=== PATIENT | female | born 1960 | race Caucasian/White ===

== ENCOUNTER 2020-02-29 07:14 | Outpatient (REF) | payer BC, SELFPAY | END 2020-02-29 07:15 | disposition home or self-care (01) | LOC: HO.WFDLDS 07:14 | PROVIDERS: Visit Provider Internal Medicine | DX: Z20.828 Contact with and (suspected) exposure to other viral communicable diseases (principal) | CPT/HCPCS: C9803; U0003 ==

== ENCOUNTER 2020-03-30 07:12 | Outpatient (REF) | payer BC, SELFPAY | END 2020-03-30 07:13 | disposition home or self-care (01) | LOC: HO.WFDLDS 07:12 | PROVIDERS: PCP Internal Medicine; Visit Provider Internal Medicine | DX: Z20.828 Contact with and (suspected) exposure to other viral communicable diseases (principal) | CPT/HCPCS: U0003 ==